=== PATIENT | female | born 1940 | race African-American/Black ===

== ENCOUNTER 2017-10-17 14:46 | Emergency (ER) | payer MEDICARE ==
[~2017-10-17] VITALS: Ht 170.2 cm; Wt 55.3 kg
--- NOTE | 2017-10-17 15:32 | RAD ---
Lumbar spine radiograph 10/17/2017 INDICATION: Lower back pain. COMPARISON: None available. TECHNIQUE: 3 views of the lumbar spine are provided. FINDINGS: There are 5 nonrib-bearing lumbar type vertebral bodies. There is minimal anterolisthesis of L4 on L5. There is minimal anterolisthesis of L5 on S1. There is no significant height loss involving the lumbar vertebrae. Schmorl's nodes are identified involving the superior endplate of L3. There is moderate to advanced multilevel facet arthropathy in the lower lumbar spine. There is right lateral listhesis of L3 on L4. There is mild dextroconvex curvature of the lumbar spine with apex dextrocurvature at L3. Atherosclerotic changes are identified involving the abdominal and pelvic vasculature. No acute fracture is visualized. There is a nonobstructive bowel gas pattern. IMPRESSION: No acute fracture is identified involving the lumbar spine. Moderate lumbar spondylosis with minimal anterolisthesis of L4 on L5 and L5 on S1. Findings are likely on the basis of degenerative facet arthropathy. Electronically signed by: Yesica Manning MD (10/17/2017 3:29 PM) [id number]
[2017-10-17 16:04] LABS: BASO # 0.1 x10^3/uL (0.0-0.2); BASO % 1 % (0-3); EOS # 0.7 x10^3/uL (0.0-0.7); EOS % 7 % (0-3); HEMATOCRIT 32.5 % (36.0-47.0); HEMOGLOBIN 10.7 g/dL (12.0-15.5); LYMPH # 2.9 x10^3/uL (1.0-4.8); LYMPH % 31 % (24-48); MEAN CORPUSCULAR HEMOGLOBIN 27 pg (25-35); MEAN CORPUSCULAR HGB CONC 33 g/dL (31-37); MEAN CORPUSCULAR VOLUME 83 fL (79-100); MONO # 1.1 x10^3/uL (0.0-1.1); MONO % 11 % (0-9); NEUT # 4.6 x10^3uL (1.8-7.7); NEUT % 49 % (31-73); PLATELET COUNT 223 x10^3/uL (140-400); RED BLOOD COUNT 3.92 x10^6/uL (3.50-5.40); RED CELL DISTRIBUTION WIDTH 18.5 % (11.5-14.5); WHITE BLOOD COUNT 9.4 x10^3/uL (4.0-11.0)
--- NOTE | 2017-10-17 16:36 | PHYS DOC ---
Past History Past Medical History: Cancer, Hypertension, OR, Renal Failure Past Surgical History: Cancer Surgery, Other Smoking: Cigarettes Alcohol Use: None Drug Use: None Adult General Chief Complaint Chief Complaint: back pain, diarrhea, congestion HPI HPI 77-year-old female patient with history of chronic renal failure on hemodialysis brought in by her son for several chronic medical problem. Patient complaining of low back pain for more than 2 weeks as an intermittent pain that getting worse with standing up and walking. Patient was seen by her primary care physician and treated with tramadol with improvement of pain at right now does not have any more pain medication and complaining of increasing of pain. Patient denies radiation of pain, focal neuro deficit, fever and chills, nausea and vomiting, abdominal pain. Patient does not make urine. Patient's son also states she has diarrhea for more than 4 months and had chest congestion for more than 6 months with smoking more than one pack a cigarettes a day. Patient did not seek medical attention for her chronic problem. Patient had hemodialysis today. Review of Systems Review of Systems Constitutional: Denies fever or chills [] Eyes: Denies change in visual acuity, redness, or eye pain [] HENT: Denies nasal congestion or sore throat [] Respiratory: Reports cough and chest congestion Cardiovascular: No additional information not addressed in HPI [] GI: Denies abdominal pain, nausea, vomiting, bloody stools , reports diarrhea [] : Denies dysuria or hematuria [] Musculoskeletal: Reports back pain Integument: Denies rash or skin lesions [] Neurologic: Denies headache, focal weakness or sensory changes [] Endocrine: Denies polyuria or polydipsia [] All other systems were reviewed and found to be within normal limits, except as documented in this note. Allergies Allergies Allergies Coded Allergies Type Severity Reaction Last Updated Verified No Known Drug Allergies 10/17/17 No Physical Exam Physical Exam Constitutional: Mild distress, non-toxic appearance, hard of hearing. [] HENT: Normocephalic, atraumatic Eyes: PERRLA, EOMI, conjunctiva normal, no discharge. [] Neck: Normal range of motion, no tenderness, supple, no stridor. [] Cardiovascular:Heart rate regular rhythm, no murmur [] Lungs & Thorax: Bilateral breath sounds clear to auscultation [] Abdomen: Bowel sounds normal, soft, no tenderness, no masses, no pulsatile masses. [] Skin: Warm, dry, no erythema, no rash. [] Back: No tenderness, no CVA tenderness. [] Extremities: No tenderness, no cyanosis, no clubbing, ROM intact, no edema, upper extremity AV fistula. [] Neurologic: Alert and oriented X 2, normal motor function, normal sensory function, no focal deficits noted. [] Current Patient Data Vital Signs Vital Signs Date Time Temp Pulse Resp B/P (MAP) Pulse Ox O2 Delivery O2 Flow Rate FiO2 10/17/17 15:00 97.9 94 20 97 Room Air Lab Results Laboratory Tests Test 10/17/17 15:41 White Blood Count 9.4 x10^3/uL (4.0-11.0) Red Blood Count 3.92 x10^6/uL (3.50-5.40) Hemoglobin 10.7 g/dL (12.0-15.5) L Hematocrit 32.5 % (36.0-47.0) L Mean Corpuscular Volume 83 fL (79-100) Mean Corpuscular Hemoglobin 27 pg (25-35) Mean Corpuscular Hemoglobin Concent 33 g/dL (31-37) Red Cell Distribution Width 18.5 % (11.5-14.5) H Platelet Count 223 x10^3/uL (140-400) Neutrophils (%) (Auto) 49 % (31-73) Lymphocytes (%) (Auto) 31 % (24-48) Monocytes (%) (Auto) 11 % (0-9) H Eosinophils (%) (Auto) 7 % (0-3) H Basophils (%) (Auto) 1 % (0-3) Neutrophils # (Auto) 4.6 x10^3uL (1.8-7.7) Lymphocytes # (Auto) 2.9 x10^3/uL (1.0-4.8) Monocytes # (Auto) 1.1 x10^3/uL (0.0-1.1) Eosinophils # (Auto) 0.7 x10^3/uL (0.0-0.7) Basophils # (Auto) 0.1 x10^3/uL (0.0-0.2) EKG EKG [] Radiology/Procedures Radiology/Procedures [] [address] [address] IMAGING REPORT Signed PATIENT: KOMAL LEONARD ACCOUNT: [id number] : 1940 LOCATION: ER AGE: 77 SEX: F EXAM STATUS: REG ER ORD. PHYSICIAN: ZAYDA LUEVANO MD REASON: pain PROCEDURE: LUMBAR SPINE 2-3V Lumbar spine radiograph 10/17/2017 INDICATION: Lower back pain. COMPARISON: None available. TECHNIQUE: 3 views of the lumbar spine are provided. FINDINGS: There are 5 nonrib-bearing lumbar type vertebral bodies. There is minimal anterolisthesis of L4 on L5. There is minimal anterolisthesis of L5 on S1. There is no significant height loss involving the lumbar vertebrae. Schmorl's nodes are identified involving the superior endplate of L3. There is moderate to advanced multilevel facet arthropathy in the lower lumbar spine. There is right lateral listhesis of L3 on L4. There is mild dextroconvex curvature of the lumbar spine with apex dextrocurvature at L3. Atherosclerotic changes are identified involving the abdominal and pelvic vasculature. No acute fracture is visualized. There is a nonobstructive bowel gas pattern. IMPRESSION: No acute fracture is identified involving the lumbar spine. Moderate lumbar spondylosis with minimal anterolisthesis of L4 on L5 and L5 on S1. Findings are likely on the basis of degenerative facet arthropathy. Electronically signed by: Katy Luna MD (10/17/2017 3:29 PM) [id number] DICTATED AND SIGNED BY: KATY LUNA MD DATE: 10/17/17 1527 CC: ZAYDA LUEVANO MD; ESDRAS COOL MD ~ Course & Med Decision Making Course & Med Decision Making Pertinent Labs and Imaging studies reviewed. (See chart for details) Chest x-ray interpreted by me and was questionable for possible long-term or infiltrate and patient instructed to follow-up with her primary care physician regarding chronic cough for 6 months. I've spoken with the patient and/or caregivers. I've explained the patient's condition, diagnosis and treatment plan based on information available to me at this time. I've answered the patient's and/or caregivers questions and addressed any concerns. The patient and/or caregivers have a good understanding the patient's diagnosis, condition and treatment plan as can be expected at this point. Vital signs have been stabilized. The patient's condition is stable for discharge from the emergency department. The patient will pursue further outpatient evaluation with her primary care provider or other designated consulting physician as outlined in the discharge instructions. Patient and/or caregivers are agreeable to this plan of care and follow-up instructions have been explained in detail. The patient and/or caregivers have received these instructions in written format and expressed understanding of these discharge instructions. The patient and her caregivers are aware that if any significant change in condition or worsening of symptoms should prompt him to immediately return to this of the closest emergency department. If an emergent department is not readily available I would encourage him to call 911. [] Dragon Disclaimer Dragon Disclaimer This electronic medical record was generated, in whole or in part, using a voice recognition dictation system. Departure Departure: Impression: Primary Impression: Spinal stenosis Additional Impressions: Chronic diarrhea Chronic cough Chronic renal failure Chronic anemia Lung mass Disposition: HOME, SELF-CARE (At 1732) Condition: IMPROVED Referrals: ESDRAS COOL MD (PCP) Patient Instructions: Anemia, Nonspecific-Brief, Cough, Adult, Spinal Stenosis Additional Instructions: Quit smoking Follow-up with your primary care physician in one or 2 days for evaluation of lung mass Return to ER if not getting better Scripts Azithromycin (ZITHROMAX) 250 Mg Tablet 1 PKG PO UD, #1 PKG Prov: ZAYDA LUEVANO MD 10/17/17 Tramadol Hcl (ULTRAM) 50 Mg Tablet 50 MG PO PRN Q6HRS Y for PAIN, #20 TAB Prov: ZAYDA LUEVANO MD 10/17/17 Problem Qualifiers ZAYDA LUEVANO MD October 17, 2017 16:36
[2017-10-17 16:54] LABS: ALBUMIN/GLOBULIN RATIO 0.8 (1.0-1.7); CALCIUM 9.1 mg/dL (8.5-10.1); CREATININE 3.4 mg/dL (0.6-1.0); GFR 15.8; TOTAL BILIRUBIN 0.3 mg/dL (0.2-1.0)
[2017-10-17] MEDS ORDERED: traMADol 50 MG TABLET PO ONE (17:00)
[2017-10-17 17:01] LABS: POTASSIUM 3.5 mmol/L (3.5-5.1)
[2017-10-17] MEDS ORDERED: TRAM-48 PO (17:36)
[2017-10-17] MEDS ORDERED: AZIT250T PO (17:38)
[2017-10-17 17:56] VITALS: BP 156/60
--- NOTE | 2017-10-18 08:22 | RAD ---
PORTABLE CHEST 1V Clinical indications: SMOKER, CONGESTION COMPARISON: None available. Findings: There is a right lower lung zone consolidative infiltrate. Mild prominence of the right hilum which could be due to an enlarged lymph node. No pleural effusion or pneumothorax is seen. The heart size is mildly prominent some of which may be due to AP magnification. The mediastinum and pulmonary vasculature are unremarkable. IMPRESSION: Right lower lung zone consolidative infiltrate which could represent pneumonia or neoplasm. Therefore, recommend a follow-up chest x-ray in 4-6 weeks after completion of antibiotic therapy. Mild enlargement of the right hilum may be due to enlarged lymph node. Electronically signed by: Gwyn Layne MD (10/18/2017 8:19 AM) [id number]
== END 2017-10-17 17:58 | disposition home or self-care (01) ==
LOC: ER 14:46
DX: M48.061 Spinal stenosis, lumbar region without neurogenic claudication (principal); K52.9 Noninfective gastroenteritis and colitis, unspecified; I12.0 Hypertensive chronic kidney disease with stage 5 chronic kidney disease or end stage renal disease; N18.6 End stage renal disease; R91.8 Other nonspecific abnormal finding of lung field; D64.89 Other specified anemias; I25.2 Old myocardial infarction; F17.210 Nicotine dependence, cigarettes, uncomplicated; Z99.2 Dependence on renal dialysis
CPT/HCPCS: 36415; 71045; 72100; 80053; 83690; 85025; 99285-25